=== PATIENT | male | born 1960 | race Caucasian/White ===

== ENCOUNTER 2024-03-28 17:57 | Emergency (ER) | payer OTHER, SELFPAY ==
[2024-03-28 18:00] VITALS: BP 190/121
[2024-03-28 18:31] LABS: % Basophils 0.3 % (0-2); % Eosinophils 0.1 % (0-6); % Immature Granulocytes 0.2 % (0-0.5); % Lymphocytes 7.1 % (20.5-51.1); % Monocytes 5.4 % (1.7-9.3); % Neutrophils 86.9 % (42.2-75.2); Absolute Lymphocytes 0.6 10^3/uL (1.2-3.4); Absolute Monocytes 0.5 10^3/uL (0.1-0.6); Absolute Neutrophils 7.8 10^3/uL (1.4-6.5); Hematocrit 47.6 % (39.0-52.0); Hemoglobin 16.5 g/dL (13.0-18.0); Mean Corp Hgb Conc. 34.7 g/dL (33.0-37.0); Mean Corpuscular Hgb 31.7 pg (27.0-31.0); Mean Corpuscular Volume 91.4 fL (80.0-94.0); Mean Platelet Volume 10.4 fL (7.4-10.4); Nucleated Red Blood Cells % 0 % (-); Platelet Count 202 10^3/uL (130-400); Red Blood Cell Count 5.21 10^6/uL (4.70-6.10); Red Cell Dist. Width 11.9 % (11.5-14.5)
[2024-03-28 18:41] LABS: Lactic Acid 0.9 mmol/L (0.7-2.0)
[2024-03-28 18:54] LABS: ALT (SGPT) 27 U/L (0-50); AST (SGOT) 31 U/L (17-59); Albumin 4.5 g/dl (3.5-5.0); Alkaline Phosphatase 74 U/L (38-126); Blood Urea Nitrogen 12 mg/dl (9-20); Calcium 9.1 mg/dl (8.4-10.2); Carbon Dioxide 31 mmol/L (22-30); Chloride 101 mmol/L (98-107); Glucose 123 mg/dl (70-99); Lipase 749 U/L (23-300); Potassium 4.4 mmol/L (3.5-5.1); Sodium 140 mmol/L (135-145); Total Bilirubin 0.6 mg/dl (0.2-1.3); Total Protein 7.3 g/dl (6.3-8.2); eGFR > 60.00
--- NOTE | 2024-03-28 19:34 | ED.GENMED ---
History of Present Illness
<Susan Yu MD, Resident - Last Filed: 03/28/24 22:56>
General
Chief Complaint: Abdominal Pain
Source: patient and family
Time Seen by Provider: 03/28/24 18:57
History of Present Illness
History of Present Illness:
This is a 63 year old male patient with PMH of hyperlipidemia who presents to the ER with concerns of abdominal pain. He states that last week when he was exercising (sit ups), he started to notice some lower abdominal pain specifically in left
lower quadrant. The pain was constant the past week but started to become sharp recently. He did have a fever of 100.1 at home and started to have diarrhea last night (5 episodes). He had not taken any pain medication. He does not have any
particular pain in relation to meals or any recent heavy drinking. He denies any chills, vomiting or chest pain. The patient has history of diverticulosis.
Past History
<Susan Yu MD, Resident - Last Filed: 03/28/24 22:56>
Past History
ED Past Medical History: HTN and Other (hyperlipidemia)
ED Past Surgical History: Appendectomy and Other (inguinal hernia)
Social History
Tobacco: Non-smoker
Alcohol: Occasional
Drug: None
Personal:
Living: with family
Review of Systems
<Susan Yu MD, Resident - Last Filed: 03/28/24 22:56>
Review of Systems
Constitutional: Reports fever; Denies chills
Respiratory: Denies cough
Cardiac: Denies chest pain
ABD/GI: Reports abdominal pain and diarrhea; Denies vomiting or bloody stools
Phy Exam
<Susan Yu MD, Resident - Last Filed: 03/28/24 22:56>
General Physical Exam
General Presentation: well appearing and no apparent distress
Cardiovascular Exam
Cardiovascular Exam: regular rate/rhythm and no murmur
Heart Sounds: normal
Pulmonary Exam
Pulmonary Exam: lungs clear, no respiratory distress and no crackles
Gastrointestinal Exam
Gastrointestinal Exam: soft, non distended and tender (left lower quadrant)
Neurological Exam
Neurological Exam: oriented x3
Musculoskeletal Exam
Musculoskeletal Exam: no edema
Skin Exam
Skin Exam: warm/dry
Psychiatric Exam
Psychiatric Exam: normal mood/affect
Course
<Susan Lucy Yu MD, Resident - Last Filed: 03/28/24 22:56>
Orders/Labs/Results
Orders:
Orders
03/28/24 18:15
Complete Blood Count/With Diff Urgent
Comprehensive Metabolic Panel Urgent
Lactic Acid Urgent
Lipase Urgent
03/28/24 19:52
CT Abd/pelvis W Iv Cont Urgent
Comment:
Reason For Exam: LLQ pain, fever
Ketorolac [Toradol] 30 mg IV NOW STA
03/28/24 21:22
Amoxicillin 875 mg/Clav 125 mg [Augmentin 875 mg/125 mg] 1 tablet PO NOW STA
Abnormal Lab Results
03/28/24
18:15
MCH 31.7 H pg
(27.0-31.0)
Absolute Neuts (auto) 7.8 H 10^3/uL
(1.4-6.5)
Absolute Lymphs (auto) 0.6 L 10^3/uL
(1.2-3.4)
Neutrophils % 86.9 H %
(42.2-75.2)
Lymphocytes % 7.1 L %
(20.5-51.1)
Carbon Dioxide 31 H mmol/L
(22-30)
Glucose 123 H mg/dl
(70-99)
Lipase 749 H U/L
(23-300)
03/28/24 18:15
03/28/24 18:15
Vital Signs
Initial and Last Documented VS:
Initial Vital Signs
Temp Pulse Resp BP Pulse Ox
99.1 F 75 18 190/121 99
03/28/24 18:00 03/28/24 18:00 03/28/24 18:00 03/28/24 18:00 03/28/24 18:00
Last Documented Vital Signs
Temp Pulse Resp BP Pulse Ox
99.1 F 75 18 190/121 99
03/28/24 18:00 03/28/24 18:00 03/28/24 18:00 03/28/24 18:00 03/28/24 18:00
<Kevin Baron, DO - Last Filed: 03/28/24 19:55>
Orders/Labs/Results
Orders:
Orders
03/28/24 18:15
Complete Blood Count/With Diff Urgent
Comprehensive Metabolic Panel Urgent
Lactic Acid Urgent
Lipase Urgent
03/28/24 19:52
CT Abd/pelvis W Iv Cont Urgent
Comment:
Reason For Exam: LLQ pain, fever
Ketorolac [Toradol] 30 mg IV NOW STA
03/28/24 21:22
Amoxicillin 875 mg/Clav 125 mg [Augmentin 875 mg/125 mg] 1 tablet PO NOW STA
Abnormal Lab Results
03/28/24
18:15
MCH 31.7 H pg
(27.0-31.0)
Absolute Neuts (auto) 7.8 H 10^3/uL
(1.4-6.5)
Absolute Lymphs (auto) 0.6 L 10^3/uL
(1.2-3.4)
Neutrophils % 86.9 H %
(42.2-75.2)
Lymphocytes % 7.1 L %
(20.5-51.1)
Carbon Dioxide 31 H mmol/L
(22-30)
Glucose 123 H mg/dl
(70-99)
Lipase 749 H U/L
(23-300)
03/28/24 18:15
03/28/24 18:15
Vital Signs
Initial and Last Documented VS:
Initial Vital Signs
Temp Pulse Resp BP Pulse Ox
99.1 F 75 18 190/121 99
03/28/24 18:00 03/28/24 18:00 03/28/24 18:00 03/28/24 18:00 03/28/24 18:00
Last Documented Vital Signs
Temp Pulse Resp BP Pulse Ox
99.1 F 75 18 190/121 99
03/28/24 18:00 03/28/24 18:00 03/28/24 18:00 03/28/24 18:00 03/28/24 18:00
<Susan Yu MD, Resident - Last Filed: 03/28/24 22:56>
MDM/Problems Addressed
Differential Diagnosis Includes:
Acute pancreatitis, diverticulitis, acute gastroenteritis
MDM/Problems Addressed:
Patient was afebrile on presentation. Mild tenderness present in LLQ. CBC/CMP showing elevated lipase levels with normal LFTs. He denies any recent heavy drinking. Likely to be diverticulitis due to his history of diverticulosis. Will get imaging CT
abd though he does not present clinically as acute pancreatitis. CT abdomen shows mild and moderate diverticulosis. Patient will be started on antibiotic therapy for possible early course of diverticulitis. Patient was given 1 dose of Augmentin
today in ED. Patient is stable enough for discharge and advised to finish his antibiotic course along with following with his family physician in a week.
<Susan Yu MD, Resident - Last Filed: 03/28/24 22:56>
*Critical Care Note
Total Time (30-74mins, 75-104mins- exclusive of procedures): Not Applicable
ED Attending Note
<Susan Yu MD, Resident - Last Filed: 03/28/24 22:56>
-
Portions of this chart may have been created with voice recognition software.� Occasional wrong word or��sound alike� substitutions may have occurred due to the inherent limitations of voice recognition software.
<Kevin Baron, - Last Filed: 03/28/24 19:55>
ED Attending Note
Patient seen and examined by attending physician: Yes
I performed a history and physical exam of patient and discussed management with resident, I reviewed resident's note and agree with documented findings and plan of care.: Yes
ED Attending Note:
I have seen and evaluated the patient with a [id number] encounter. I have spoken to the resident and involved in the medical history, the physical exam, medical decision making.
Evaluation and management service: agree unless noted differently below.
Results interpretation: agree unless noted differently below.
Focused HPI: 63-year-old male presenting with left lower quadrant pain. Patient now developing fevers at home. Patient did not take any Tylenol or Motrin and is afebrile here. He does have a history of diverticulosis but denies a prior history of
diverticulitis.
Physical exam: Uncomfortable. Point tenderness left lower quadrant. No rebound
Medical Decision Making: Blood work was done prior to my evaluation. He does have elevated lipase. He does admit to drinking more alcohol recently due to the holidays but denies excessive amount. Given the left lower quadrant pain, will obtain CT
to rule out evidence of diverticulitis.
Discharge Plan
Departure
Patient Disposition: Home (Routine Discharge)
Date of Disposition: 03/28/24
Time of Disposition: 21:21
Patient with high blood pressure during this ER visit?: Yes
Discharge Problem:
Diverticulitis
Prescriptions:
New
amoxicillin-pot clavulanate 875-125 mg tablet
1 tab PO BID 7 Days Qty: 14 0RF
Referrals:
Maxim Peña MD [Family Provider] -
Activity Restrictions/Additional Instructions:
If experiencing symptoms such as worsening abdominal pain, high grade fevers or vomiting please return to the ER. Take Augmentin as prescribed twice a day for 7 days. Follow up with primary care physician in a week.
Interventions
Interventions:
*Risk Screen - Suicide Last Done: 03/28/24 20:32
*General Assessment Last Done: 03/28/24 18:00
*ED COVID-19 Vaccine History Last Done: 03/28/24 20:31
Discharge Date and Time
Print Language: [place]
[2024-03-28 20:00] VITALS: BP 157/96
[2024-03-28] MEDS: TORADOL 30 MG IV (20:29)
[2024-03-28 20:31] VITALS: BMI 24.7
[2024-03-28] MEDS: AUGMENTIN 875 MG/125 MG 1 TABLET PO (22:04)
== END 2024-03-28 21:50 | disposition home or self-care (01) ==
LOC: EMR 17:57
PROVIDERS: Emergency Medicine; EMERGENCY PHYSICIAN Student in an Organized Health Care Education/Training Program; FAMILY PHYSICIAN Internal Medicine
DX: K57.32 Diverticulitis of large intestine without perforation or abscess without bleeding (principal); I10 Essential (primary) hypertension; E78.5 Hyperlipidemia, unspecified; Z90.49 Acquired absence of other specified parts of digestive tract
CPT/HCPCS: 96374; 99284; 74177; 80053; 83605; 83690; 85025; Q9967